=== PATIENT | male | born 2000 | race Two or more races ===

== ENCOUNTER → 2023-10-12 | Emergency (ER) | payer OTHER ==
[~2023-10-12] VITALS: Ht 177.8 cm; Wt 80.4 kg
[2023-10-12 11:44] VITALS: BP 141/92; PULSE 85; RESP 18; TEMP 97.1
== END | disposition still patient (30) ==
LOC: EMS 11:35
DX: S70.11XA Contusion of right thigh, initial encounter (principal); V49.88XA Car occupant (driver) (passenger) injured in other specified transport accidents, initial encounter; Y93.89 Activity, other specified; Y92.89 Other specified places as the place of occurrence of the external cause; Y99.8 Other external cause status
CPT/HCPCS: 99282; Z7502